=== PATIENT | male | born 1955 | race Hispanic/Latino ===

== ENCOUNTER 2017-03-25 06:43 | Day surgery (SDC) | payer OTHER ==
[2015-06-04 14:24] VITALS: BMI 33.4
[2017-03-25] MEDS ORDERED: Methylene Blue 10 mg/ml (1ml) Inj ONE (07:45)
[2017-03-25] MEDS ORDERED: Lactated Ringer's 1,000 ML IV SCH (08:47)
[2017-03-25] MEDS ORDERED: Propofol 10 mg/ml Inj (20 ML) ONE (08:56)
[2017-03-25] MEDS ORDERED: Midazolam 2 MG/2 ML VIAL ONE (08:58)
[2017-03-25 09:53] VITALS: RESP 16
[2017-03-25 11:17] VITALS: BP 101/68; PULSE 79; TEMP 98.5; O2SAT 98
== END 2017-03-25 10:59 | disposition home or self-care (01) ==
LOC: ENDO 06:43
PROVIDERS: ATTEND Internal Medicine Gastroenterology
DX: K51.90 Ulcerative colitis, unspecified, without complications (principal); K64.8 Other hemorrhoids; K62.89 Other specified diseases of anus and rectum
CPT/HCPCS: 45380; 88305; J2250; J2704; J7040; J7120

== ENCOUNTER 2018-03-17 07:30 | Day surgery (SDC) | payer OTHER ==
[2015-06-04 14:24] VITALS: BMI 33.4
[2018-03-17 08:01] VITALS: TEMP 97.8
[2018-03-17] MEDS ORDERED: Propofol 10 mg/ml Inj (20 ML) ONE (08:37)
[2018-03-17] MEDS ORDERED: Sodium Chloride 0.9% 1,000 ML IV SCH (09:00)
[2018-03-17 10:54] VITALS: PULSE 76; RESP 16; O2SAT 98
[2018-03-17 11:38] VITALS: BP 114/70
== END 2018-03-17 11:34 | disposition home or self-care (01) ==
LOC: ENDO 07:30
PROVIDERS: ATTEND Internal Medicine Gastroenterology
DX: K51.90 Ulcerative colitis, unspecified, without complications (principal); K62.1 Rectal polyp; K52.9 Noninfective gastroenteritis and colitis, unspecified; K62.89 Other specified diseases of anus and rectum; K64.8 Other hemorrhoids; R13.10 Dysphagia, unspecified; I10 Essential (primary) hypertension; E78.5 Hyperlipidemia, unspecified; E78.00 Pure hypercholesterolemia, unspecified; N40.0 Benign prostatic hyperplasia without lower urinary tract symptoms
CPT/HCPCS: 45380; 88305; J2001; J2704; J7030